=== PATIENT | male | born 1955 | race Caucasian/White ===

== ENCOUNTER 2023-06-01 16:02 | Emergency (ER) | payer OTHER, BC ==
[2023-06-01 16:37] VITALS: BP 155/95; PULSE 70; RESP 20; TEMP 98.4; BMI 25.8
== END 2023-06-01 17:41 | disposition home or self-care (01) ==
LOC: FER 16:02
DX: R22.41 Localized swelling, mass and lump, right lower limb (principal); L53.9 Erythematous condition, unspecified
CPT/HCPCS: 73630-TC-RT-FY; 93971-TC; 99284-25

== ENCOUNTER 2024-04-10 10:33 | Emergency (ER) | payer OTHER, BC ==
[2024-04-10 10:52] VITALS: BP 146/90; PULSE 68; RESP 15; TEMP 98.2; BMI 25.8
[2024-04-10] MEDS ORDERED: DOXYCYCLINE HYCLATE 100 MG CAPSULE PO ONE (11:35)
[2024-04-10] MEDS: DOXYCYCLINE HYCLATE 100 MG CAPSULE PO ONE (11:38)
== END 2024-04-10 11:46 | disposition home or self-care (01) ==
LOC: FER 10:33
DX: S40.862A Insect bite (nonvenomous) of left upper arm, initial encounter (principal); W57.XXXA Bitten or stung by nonvenomous insect and other nonvenomous arthropods, initial encounter
CPT/HCPCS: 99283-25